=== PATIENT | male | born 1970 | race Caucasian/White ===

== ENCOUNTER 2024-12-26 21:46 | Observation (INO) ==
[2024-12-26] MEDS: SODIUM CHLORIDE 0.9% 1,000 ML IV ONE (22:08)
[2024-12-26 22:15] LABS: Hematocrit (blood only) 40.8 % (42.0-52.0); Hemoglobin 14.0 g/dl (14.0-18.0); Immature Granulocytes # (auto) 0.01 K/uL (0.01-0.20); Immature Granulocytes % (auto) 0.1 %; Mean Corpuscular Hemoglobin 30.8 pg (25.0-34.0); Mean Corpuscular Volume 89.7 fL (80.0-100.0); Platelet Count 236 K/uL (130-400); RDW Standard Deviation 45.3 fL (36.4-46.3); Red Blood Count 4.55 M/uL (4.70-6.10); White Blood Count 8.44 K/ul (4.8-10.8)
[2024-12-26 22:38] LABS: Alanine Aminotransferase 13.0 U/L (7-52); Albumin Globulin Ratio 1.2 (0.9-2); Alkaline Phosphatase 62.0 U/L (34-104); Anion Gap 7.0 (3-11); Bilirubin,Total 0.5 mg/dl (0.2-1.0); Blood Urea Nitrogen 15.0 mg/dl (6-23); Calcium 8.5 mg/dl (8.6-10.3); Carbon Dioxide 26.0 mmol/L (21-32); Chloride 104.0 mmol/L (98-107); Creatinine Clr Calc Pharmacy 114.0 ml/min; Globulin 3.2 gm/dl (2.5-4.0); Glucose 175.0 mg/dl (70-99(Fasting)); Lipase 35.0 U/L (11-82); Magnesium 2.0 mg/dl (1.7-2.4); Potassium 3.9 mmol/L (3.5-5.1); Sodium 137.0 mmol/L (136-145); Total Protein 6.9 gm/dl (6.0-8.3)
[2024-12-26 22:50] LABS: INR 0.9 (0.9-1.1); Prothrombin Time 10.3 Seconds (9.0-12.0)
[2024-12-26 22:53] LABS: Thyroid Stimulating Hormone 2.384 uIu/ml (0.300-4.500)
--- NOTE | 2024-12-26 22:59 | Emergency Department Note ---
Impression & Plan Syncope, Bradycardia with 31-40 beats per minute, Hypotensive episode ED Provider Note NAME: IGNACIA HEDRICK Jr AGE: 54 SEX: M : 1970 ARRIVES VIA: Ambulance INFORMANT: Patient ED PROVIDER(S): Jose Dudley MD CHIEF COMPLAINT: Syncope, hypotension PLAN: Disposition: Admit MEDICAL DECISION MAKING: The patient is a pleasant 54-year-old gentleman with a past medical history of hypothyroidism, hypertension, alcohol use who presents to the emergency department via EMS for evaluation of near syncope where the patient had been at a bar where he was about to get dinner and have a beer where he had only had a couple of sips before he began to feel lightheaded and was noted to be pale and diaphoretic. EMS was called and found the patient to be hypotensive with systolic blood pressure in the 70s and heart rate as low as 39. I did review the case with EMS on medical command and reviewed 12 leads and there was no evidence of high-grade AV block and rhythm appeared to be sinus bradycardia. The patient was administered atropine by EMS but had no effect. He was subsequently given IV fluid hydration per my instruction and blood pressure subsequently did improve as did his rate. Patient reports feeling well throughout the day prior to the event. He reports he was doing renovation work on his home which included sawing wood boards. He did not feel he was sweating excessively or becoming dehydrated. On arrival emergency department patient no acute distress, afebrile with heart rate in the 80s, blood pressure 110/70s and vital signs otherwise stable. He appears clinically dry. He exhibits no focal neurologic deficits. EKG without overt acute ischemia. CXR with question of peribronchial thickening per my personal preliminary review/interpretation However lungs better characterized on CT imaging subsequently. WBC, hemoglobin and platelets within normal limits. Chemistry without metabolic acidosis. Electrolytes and LFTs unremarkable. Initial high styptic troponin 3.4 with repeat 2.9, both within normal limits. Lipase is normal. TSH within normal limits. Medical alcohol was 12.8. CTA of the chest was negative for PE, acute aortic pathology or acute cardiopulmonary process otherwise. CT of the head negative for acute abnormalities. Patient did agree with plan for admission for further evaluation. Case was discussed [place], [facility] [place], who will evaluate the patient for admission. Further management per admitting team. Triage Nursing notes reviewed and agree them. Prior/external medical records reviewed Vital Signs: reviewed Differential diagnosis: Vasovagal event, dehydration, infection, hypoglycemia, electrolyte abnormalities, cardiac sources, intracerebral event, pulmonary embolism, seizure, toxicologic, neurologic, as well as other pathologies. ER treatment provided: See below. Diagnostics interpreted by me: ECG: Normal sinus rhythm, 79 bpm, no ectopy, no overt ST elevation or depression, QTc 454, QRS 70 Cardiac Monitoring: An order for continuous cardiac monitoring was placed and demonstrated Normal sinus rhythm, 79 bpm, no ectopy. Laboratory studies: See below Imaging studies: See below Consultation(s): Case was discussed with Dr. Valle, [facility] [place], who will evaluate the patient for admission. HPI: Per MDM. ROS: See above HPI for pertinent positives & negatives. A total of 10 systems reviewed and were otherwise negative. VITALS:See Below PHYSICAL EXAMINATION: GENERAL: Awake, alert, fatigued-appearing, in no distress HENT: Normocephalic, atraumatic. Oropharynx with dry mucous membranes and otherwise unremarkable. EYES: Normal conjunctiva. Sclera non-icteric. EOMI. No nystamgus. PEARRL. NECK: Supple. No nuchal rigidity. FROM. No JVD. RESPIRATORY: Clear to auscultation. CARDIAC: Regular rate, normal rhythm. Extremities warm and well perfused. Pulses equal. ABDOMEN: Soft, non-distended. No tenderness to palpation. No rebound or guarding. No masses. MUSCULOSKELETAL: Chest examination reveals no tenderness. The back is symmetrical on inspection without obvious abnormality. There is no CVA tenderness to palpation. No joint edema. LOWER EXTREMITIES: Calves are equal size bilaterally and non-tender. No edema. No discoloration. NEURO: Cranial nerves II-XII grossly intact. 5/5 strength and SILT x 4 extremities. Intact [id number]. SKIN: No rash or jaundice noted. Jose Dudley MD Past Med/Surg History Problem List (Updated 12/27/24 @ 06:20 by Jose Dudley MD) Hypotensive episode (Acute) Hypertension Bradycardia with 31-40 beats per minute (Acute) Syncope (Acute) History of pancreatitis Elevated lipase Abrasion of left leg (Acute) Encounter for vasectomy Social History Smoking Status: Never smoker Hx Alcohol Use: Yes Alcohol type: beer Hx Substance Use: Yes Last Used Substance: Days (ago) Preferred Language: Bulgarian Communication Ability: Effective Manager Plant Required: No Beliefs That Will Affect Care: None Current Living Situation: Alone Feels Safe at Home: Yes Assistive Devices: None Allergies Allergies Allergy/AdvReac Type Severity Reaction Status Date / Time bee venom protein (honey bee) Allergy Severe Anaphylaxis Verified 12/26/24 22:05 Home Meds Home Medications Medication Instructions Recorded Confirmed clonazepam 0.5 mg tablet 0.5 mg PO BID PRN Anxiety 10/17/22 12/26/24 duloxetine 30 mg capsule,delayed 30 mg PO DAILY 11/22/22 12/26/24 release duloxetine 60 mg capsule,delayed 60 mg PO HS 11/22/22 12/26/24 release levothyroxine 75 mcg tablet 75 mcg PO DAILYBB 11/22/22 12/26/24 lisinopril 30 mg tablet 30 mg PO HS 11/22/22 12/26/24 metoprolol succinate 25 mg 25 mg PO HS 11/22/22 12/26/24 tablet,extended release 24 hr Results & Data (ED) Vital Signs Vital Signs - 24 hr 12/26/24 21:54 12/26/24 22:01 12/26/24 22:05 Temperature 36.6 C Temperature Source Oral Pulse Rate 81 80 Pulse Rate [Apical] Pulse Rate from SpO2 Sensor Pulse Rhythm [Apical] Respiratory Rate 18 Respiratory Effort / Characteristics Non-Labored Spontaneous Respiratory Depth Normal Respiratory Pattern Regular Blood Pressure 115/75 Blood Pressure [Right Arm] Blood Pressure Mean 88 Blood Pressure Mean [Right Arm] Pulse Oximetry 94 95 Oxygen Delivery Method Room Air Room Air Sepsis Recent Fever Within 48 Hours No Sepsis New/Unexplained Change in Mental Status N/A Sepsis Action Taken by Nursing No Action Required 12/26/24 23:08 12/26/24 23:15 12/27/24 00:00 Temperature Temperature Source Pulse Rate 74 74 71 Pulse Rate [Apical] Pulse Rate from SpO2 Sensor 75 73 Pulse Rhythm [Apical] Respiratory Rate 18 20 16 Respiratory Effort / Characteristics Respiratory Depth Respiratory Pattern Blood Pressure 104/62 105/69 122/77 Blood Pressure [Right Arm] Blood Pressure Mean 76 81 91 Blood Pressure Mean [Right Arm] Pulse Oximetry 96 97 93 Oxygen Delivery Method Room Air Room Air Room Air Sepsis Recent Fever Within 48 Hours Sepsis New/Unexplained Change in Mental Status Sepsis Action Taken by Nursing 12/27/24 00:15 12/27/24 00:30 12/27/24 01:00 Temperature Temperature Source Pulse Rate 71 76 84 Pulse Rate [Apical] Pulse Rate from SpO2 Sensor 70 75 84 Pulse Rhythm [Apical] Respiratory Rate 21 20 17 Respiratory Effort / Characteristics Respiratory Depth Respiratory Pattern Blood Pressure 142/90 H 106/72 110/70 Blood Pressure [Right Arm] Blood Pressure Mean 111 83 83 Blood Pressure Mean [Right Arm] Pulse Oximetry 94 96 95 Oxygen Delivery Method Room Air Room Air Room Air Sepsis Recent Fever Within 48 Hours Sepsis New/Unexplained Change in Mental Status Sepsis Action Taken by Nursing 12/27/24 01:30 12/27/24 02:00 12/27/24 02:30 Temperature Temperature Source Pulse Rate 78 72 76 Pulse Rate [Apical] Pulse Rate from SpO2 Sensor 78 71 77 Pulse Rhythm [Apical] Respiratory Rate 20 19 20 Respiratory Effort / Characteristics Respiratory Depth Respiratory Pattern Blood Pressure 99/76 L 85/59 L 98/60 L Blood Pressure [Right Arm] Blood Pressure Mean 83 64 69 Blood Pressure Mean [Right Arm] Pulse Oximetry 95 95 95 Oxygen Delivery Method Room Air Room Air Room Air Sepsis Recent Fever Within 48 Hours Sepsis New/Unexplained Change in Mental Status Sepsis Action Taken by Nursing 12/27/24 02:46 12/27/24 03:00 Temperature Temperature Source Pulse Rate 78 Pulse Rate [Apical] 74 Pulse Rate from SpO2 Sensor Pulse Rhythm [Apical] Regular Respiratory Rate 20 Respiratory Effort / Characteristics Non-Labored Spontaneous Respiratory Depth Normal Respiratory Pattern Regular Blood Pressure Blood Pressure [Right Arm] 111/60 Blood Pressure Mean Blood Pressure Mean [Right Arm] 77 Pulse Oximetry 98 Oxygen Delivery Method Room Air Sepsis Recent Fever Within 48 Hours Sepsis New/Unexplained Change in Mental Status Sepsis Action Taken by Nursing Laboratory Data Attestation: I reviewed the patient's lab results. 12/26/24 22:00 12/26/24 22:00 Lab Results 12/26/24 12/26/24 12/27/24 Range/Units 22:00 22:09 00:31 WBC 8.44 (4.8-10.8) K/ul RBC 4.55 L (4.70-6.10) M/uL Hgb 14.0 (14.0-18.0) g/dl Hct 40.8 L (42.0-52.0) % MCV 89.7 (80.0-100.0) fL MCH 30.8 (25.0-34.0) pg MCHC 34.3 (32.0-36.0) g/dL RDW Std Deviation 45.3 (36.4-46.3) fL RDW Coeff of Jim 13.8 (11.5-14.5) % Plt Count 236 (130-400) K/uL MPV 9.4 (9.4-12.4) fL Immature Gran % (Auto) 0.1 % Neut % (Auto) 54.0 % Lymph % (Auto) 34.4 % Citrus % (Auto) 7.3 % Eos % (Auto) 3.4 % Baso % (Auto) 0.8 % Neut # (Auto) 4.55 (1.40-6.50) K/uL Lymph # (Auto) 2.90 (1.20-3.40) K/uL Citrus # (Auto) 0.62 H (0.11-0.59) K/uL Eos # (Auto) 0.29 (0.00-0.50) K/uL Baso # (Auto) 0.07 (0.00-0.20) K/uL Immature Gran # (Auto) 0.01 (0.01-0.20) K/uL PT 10.3 (9.0-12.0) Seconds INR 0.9 (0.9-1.1) Sodium 137 (136-145) mmol/L Potassium 3.9 (3.5-5.1) mmol/L Chloride 104 (98-107) mmol/L Carbon Dioxide 26 (21-32) mmol/L Anion Gap 7 (3-11) BUN 15 (6-23) mg/dl Creatinine 1.04 (0.6-1.4) mg/dl Est Cr Clr Drug Dosing 114.0 ml/min eGFR 86.39 BUN/Creatinine Ratio 14.4 (10-20) Glucose 175 H (70-99(Fasting)) mg/dl POC Glucose 128 H (70-99) mg/dl Calcium 8.5 L (8.6-10.3) mg/dl Phosphorus 3.1 (2.5-4.9) mg/dl Magnesium 2.0 (1.7-2.4) mg/dl Total Bilirubin 0.5 (0.2-1.0) mg/dl AST 13 (13-39) U/L ALT 13 (7-52) U/L Alkaline Phosphatase 62 (34-104) U/L Troponin I High Sens 3.4 2.9 (0-20) pg/ml Total Protein 6.9 (6.0-8.3) gm/dl Albumin 3.7 (3.4-5.0) gm/dl Globulin 3.2 (2.5-4.0) gm/dl Albumin/Globulin Ratio 1.2 (0.9-2) Lipase 35 (11-82) U/L TSH 2.384 (0.300-4.500) uIu/ml Ethyl Alcohol mg/dL 12.8 H (<10.0) mg/dl Administered Medications Potassium Chloride/Sodium Chloride (Normal Saline W/20 Meq Kcl) 20 meq in 1,000 mls @ 100 mls/hr IV .Q10H ZOLTAN Stop: 12/27/24 12:59 Last Admin: 12/27/24 03:31 Dose: 100 mls/hr Documented By: JIMMIE Levothyroxine Sodium (Levothyroxine Sodium 75 Mcg Tablet) 75 mcg PO DAILYBB ZOLTAN Stop: 01/26/25 06:29 Last Admin: 12/27/24 06:10 Dose: 75 mcg Documented By: CHRISTINA Discontinued Medications Sodium Chloride (Nss) 1,000 mls @ 999 mls/hr IV .Q1H1M ONE Stop: 12/26/24 23:04 Last Infusion: 12/26/24 23:09 Dose: Infused Documented By: Admin: 12/26/24 22:08 Dose: 999 mls/hr Documented By: NATHAN Acetaminophen (Ofirmev) 1,000 mg in 100 mls @ 400 mls/hr IV NOW STA Stop: 12/26/24 23:11 Last Infusion: 12/27/24 00:04 Dose: Infused Documented By: Admin: 12/26/24 23:49 Dose: 400 mls/hr Documented By: TRICIA Ioversol (Optiray 320 125ml) 125 ml IV ONCE ONE Stop: 12/26/24 23:41 Last Admin: 12/26/24 23:40 Dose: 118 ml Documented By: CATALINA Imaging Data Radiologist's Impression: Chest X-Ray 12/26/24 22:03 Exam(s): XR CXR 1 VIEW EXAM: XR Chest, 1 View CLINICAL HISTORY: Reason for exam: near syncope. TECHNIQUE: Frontal view of the chest. COMPARISON: Prior chest x-ray from January 28, 2024. FINDINGS: Lungs: Mild to moderate peribronchial thickening of the central bronchi. No consolidation. Pleural space: Unremarkable. No pneumothorax. Heart: Unremarkable. No cardiomegaly. Mediastinum: Unremarkable. Normal mediastinal contour. Bones/joints: Unremarkable. No acute fracture. IMPRESSION: Bronchitis, which may be of infectious or inflammatory etiologies. No consolidation or pleural effusion. Electronically signed by: Shari Altamirano MD 12/26/24 23:56 PM Chest CTA 12/26/24 22:56 Exam(s): CTA CHEST W/WO Contrast IV Amt: 118 ML OPTIRAY 320 EXAM: CT Angiography Chest With Intravenous Contrast CLINICAL HISTORY: Reason for exam: cp, syncope. TECHNIQUE: Axial computed tomographic angiography images of the chest with intravenous contrast. CTDI is 28.14 mGy and DLP is 993.24 mGy-cm. Automated exposure control was utilized for the study. A dose lowering technique was utilized adhering to the principles of ALARA. MIP reconstructed images were created and reviewed. CONTRAST: Patient received 118 ML OPTIRAY 320 of IV contrast COMPARISON: No relevant prior studies available. FINDINGS: Pulmonary arteries: Suboptimal pulmonary artery opacification, limiting evaluation. No evidence of acute pulmonary embolism as visualized. Aorta: No aortic intramural hematoma, aneurysm, or dissection. Lungs: No consolidation or mass. Pleural space: No significant pleural effusion. No pneumothorax. Heart: Coronary artery atherosclerosis. No cardiomegaly or pericardial effusion. Bones/joints: No acute fracture. No dislocation. Soft tissues: Unremarkable. Lymph nodes: No enlarged lymph nodes. IMPRESSION: 1. No aortic intramural hematoma, aneurysm, or dissection. 2. Suboptimal pulmonary artery opacification, limiting evaluation. No evidence of acute pulmonary embolism as visualized. Electronically signed by: Elder Linton M.D. 12/27/24 01:[address] 12/26/24 22:56 Exam(s): CT HEAD Without Contrast EXAM: CT Head Without Intravenous Contrast CLINICAL HISTORY: Reason for exam: richardson, syncope. TECHNIQUE: Axial computed tomography images of the head/brain without intravenous contrast. CTDI is 37.01 mGy and DLP is 624.41 mGy-cm. Automated exposure control was utilized for the study. A dose lowering technique was utilized adhering to the principles of ALARA. COMPARISON: No relevant prior studies available. FINDINGS: Brain: Unremarkable. No hemorrhage. No significant white matter disease. No edema. Ventricles: Unremarkable. No ventriculomegaly. Bones/joints: Unremarkable. No acute fracture. Soft tissues: Unremarkable. Sinuses: Chronic right ethmoid sinusitis.. No acute sinusitis. Mastoid air cells: Unremarkable as visualized. No mastoid effusion. IMPRESSION: No evidence of acute intracranial pathology. Electronically signed by: Shari Altamirano MD 12/27/24 02:13 AM Discharge Plan Visit Data Chief Complaint: Syncope Stated Complaint: NEAR SYNCOPE ED Provider: Jose Dudley Discharge Problem: Syncope, Bradycardia with 31-40 beats per minute, Hypotensive episode Patient Disposition: Admitted As Inpatient Condition: Fair Discharge Instructions Interventions: ED Discharge Assessment Last Done: 12/27/24 04:56 Discharge Problem: Syncope Qualifiers: Syncope type: unspecified Qualified Code(s): R55 - Syncope and collapse
[2024-12-26] MEDS: OPTIRAY 320 125ml IV ONE (23:40)
[2024-12-26] MEDS: ACETAMINOPHEN 1,000 MG/100 ML VIAL IV STA (23:49)
--- NOTE | 2024-12-26 23:57 | XRay Report ---
Exam(s): XR CXR 1 VIEW EXAM: XR Chest, 1 View CLINICAL HISTORY: Reason for exam: near syncope. TECHNIQUE: Frontal view of the chest. COMPARISON: Prior chest x-ray from January 28, 2024. FINDINGS: Lungs: Mild to moderate peribronchial thickening of the central bronchi. No consolidation. Pleural space: Unremarkable. No pneumothorax. Heart: Unremarkable. No cardiomegaly. Mediastinum: Unremarkable. Normal mediastinal contour. Bones/joints: Unremarkable. No acute fracture. IMPRESSION: Bronchitis, which may be of infectious or inflammatory etiologies. No consolidation or pleural effusion. Electronically signed by: Shari Altamirano MD 12/26/24 23:56 PM
--- NOTE | 2024-12-27 01:34 | CT Scan Report ---
Exam(s): CTA CHEST W/WO Contrast IV Amt: 118 ML OPTIRAY 320 EXAM: CT Angiography Chest With Intravenous Contrast CLINICAL HISTORY: Reason for exam: cp, syncope. TECHNIQUE: Axial computed tomographic angiography images of the chest with intravenous contrast. CTDI is 28.14 mGy and DLP is 993.24 mGy-cm. Automated exposure control was utilized for the study. A dose lowering technique was utilized adhering to the principles of ALARA. MIP reconstructed images were created and reviewed. CONTRAST: Patient received 118 ML OPTIRAY 320 of IV contrast COMPARISON: No relevant prior studies available. FINDINGS: Pulmonary arteries: Suboptimal pulmonary artery opacification, limiting evaluation. No evidence of acute pulmonary embolism as visualized. Aorta: No aortic intramural hematoma, aneurysm, or dissection. Lungs: No consolidation or mass. Pleural space: No significant pleural effusion. No pneumothorax. Heart: Coronary artery atherosclerosis. No cardiomegaly or pericardial effusion. Bones/joints: No acute fracture. No dislocation. Soft tissues: Unremarkable. Lymph nodes: No enlarged lymph nodes. IMPRESSION: 1. No aortic intramural hematoma, aneurysm, or dissection. 2. Suboptimal pulmonary artery opacification, limiting evaluation. No evidence of acute pulmonary embolism as visualized. Electronically signed by: Elder Linton M.D. 12/27/24 01:33 AM
--- NOTE | 2024-12-27 02:15 | CT Scan Report ---
Exam(s): CT HEAD Without Contrast EXAM: CT Head Without Intravenous Contrast CLINICAL HISTORY: Reason for exam: richardson, syncope. TECHNIQUE: Axial computed tomography images of the head/brain without intravenous contrast. CTDI is 37.01 mGy and DLP is 624.41 mGy-cm. Automated exposure control was utilized for the study. A dose lowering technique was utilized adhering to the principles of ALARA. COMPARISON: No relevant prior studies available. FINDINGS: Brain: Unremarkable. No hemorrhage. No significant white matter disease. No edema. Ventricles: Unremarkable. No ventriculomegaly. Bones/joints: Unremarkable. No acute fracture. Soft tissues: Unremarkable. Sinuses: Chronic right ethmoid sinusitis.. No acute sinusitis. Mastoid air cells: Unremarkable as visualized. No mastoid effusion. IMPRESSION: No evidence of acute intracranial pathology. Electronically signed by: Shari Altamirano MD 12/27/24 02:13 AM
--- NOTE | 2024-12-27 03:11 | History & Physical Report ---
Date of Service December 27, 2024 Assessment & Plan (1) Syncope: (2) Bradycardia with 31-40 beats per minute: (3) Hypotensive episode: (4) Hypertension: Plan The patient is a 54-year-old male with past medical history including pancreatitis, anxiety, hypothyroidism, hypertension, sarcoidosis, and pancreatic cyst. The patient presents to the emergency department following a syncopal episode. 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 He reported eating a cheeseburger and onion rings this evening, and shortly thereafter became dizzy and weak, he was going to tell his significant other, and he reports that she noted him to be progressively more weak, and slowly lowered himself to the floor. She called EMS, who found his pressure to be 70s over 40s, and his heart rate dropped down to 39, and he was given atropine 1 mg IV and NSS 600 mL en route to the hospital. He reports no previous issues with low blood pressure and low heart rate. In emergency department he did medicate normally, and feels like himself. The patient reports that he takes most of the medications in the evening. However, he did not take his metoprolol succinate, lisinopril, or duloxetine this evening. Despite not having taken these medications, his blood pressure during my assessment in the emergency department was 98/60 with a pulse in the low 70s. Patient reports he was drinking a single beer when the symptoms began to occur. He has actually decreased his overall alcohol intake over the past months. He was referred to the [facility] service for further evaluation and treatment. Syncope/bradycardia/hypotensive episode- When patient was assessed by EMS, his pressures were in the low 70s over 40s, and heart rate dropped to 39 He was given atropine 1 mg IV and normal saline 600 mL bolus admitted to the hospital, with a report provide his blood pressure up into the 90s over 60s and heart rate into the 60-70 range. While in the emergency department, the patient maintained his blood pressure and heart rate in the same range. Evaluation in the emergency department included a normal CT scan of head, normal CTA chest. Troponin initially was 3.4 with follow-up 2.9 The patient will be admitted to telemetry for serial cardiac enzymes, serial EKG's, cardiac rhythm monitoring and a 2-D echocardiogram with Dopplers. Patient will continue to keep pacer pads on Of note, patient's pressure remains low in spite of not taking metoprolol succinate 25 mg at bedtime, and lisinopril 30 mg at bedtime. Patient reports that he was placing a laminate floor for most of the day, primarily drinking soda, and that symptoms occurred after he had a cheeseburger and onion rings. There may be an element of postprandial hypoglycemia Will hold metoprolol succinate, lisinopril, duloxetine, and clonazepam NSS + KCl 20 mEq at 100 mL/h Consult cardiology Hypothyroidism- Continue levothyroxine Depression with anxiety- Since duloxetine may have associated orthostatic hypotension, it will be held Hold clonazepam Sarcoidosis- Patient has not had any symptoms for a few years Pancreatitis/pancreatic cyst- Was thought to be secondary to use of Wegovy/semaglutide Obesity/weight management- Patient reports his weight had been 300 pounds, and since use of Wegovy had lost a significant amount of weight, but this was stopped several months ago. He reports that his weight has been gradually going back up again, and presently is at 250. The 50 pound weight difference would likely have necessitated a decrease in blood pressure medications, this is unlikely to have caused his symptoms except for short interval of time, as he had no issues with the previous day. History of Present Illness Chief Complaint: The patient presents to the emergency department following a syncopal episode. 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 He reported eating a cheeseburger and onion rings this evening, and shortly thereafter became dizzy and weak, he was going to tell his significant other, and he reports that she noted him to be progressively more weak, and slowly lowered himself to the floor. She called EMS, who found his pressure to be 70s over 40s, and his heart rate dropped down to 39, and he was given atropine 1 mg IV and NSS 600 mL en route to the hospit al. He reports no previous issues with low blood pressure and low heart rate. In emergency department he did medicate normally, and feels like himself. Primary Care Provider: Lexy Malin CRNP The patient is a 54-year-old male with past medical history including pancreatitis, anxiety, hypothyroidism, hypertension, sarcoidosis, and pancreatic cyst. The patient presents to the emergency department following a syncopal episode. 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 He reported eating a cheeseburger and onion rings this evening, and shortly thereafter became dizzy and weak, he was going to tell his significant other, and he reports that she noted him to be progressively more weak, and slowly lowered himself to the floor. She called EMS, who found his pressure to be 70s over 40s, and his heart rate dropped down to 39, and he was given atropine 1 mg IV and NSS 600 mL en route to the hospital. He reports no previous issues with low blood pressure and low heart rate. In emergency department he did medicate normally, and feels like himself. The patient reports that he takes most of the medications in the evening. However, he did not take his metoprolol succinate, lisinopril, or duloxetine this evening. Despite not having taken these medications, his blood pressure during my assessment in the emergency department was 98/60 with a pulse in the low 70s. Patient reports he was drinking a single beer when the symptoms began to occur. He has actually decreased his overall alcohol intake over the past months. He was referred to the [facility] service for further evaluation and treatment. Allergies Allergy/AdvReac Type Severity Reaction Status Date / Time bee venom protein (honey bee) Allergy Severe Anaphylaxis Verified 12/26/24 22:05 Home Medications Medication Instructions Recorded Confirmed Type clonazepam 0.5 mg tablet 0.5 mg PO BID PRN Anxiety 10/17/22 12/26/24 History duloxetine 30 mg capsule,delayed 30 mg PO DAILY 11/22/22 12/26/24 History release duloxetine 60 mg capsule,delayed 60 mg PO HS 11/22/22 12/26/24 History release levothyroxine 75 mcg tablet 75 mcg PO DAILYBB 11/22/22 12/26/24 History lisinopril 30 mg tablet 30 mg PO HS 11/22/22 12/26/24 History metoprolol succinate 25 mg 25 mg PO HS 11/22/22 12/26/24 History tablet,extended release 24 hr Past Med/Surg History Problem List (Updated 12/27/24 @ 05:12 by Rodriguez Valle MD) Hypotensive episode Hypertension Bradycardia with 31-40 beats per minute Hypotension (Acute) Syncope (Acute) History of pancreatitis Elevated lipase Abrasion of left leg (Acute) Encounter for vasectomy Social History Smoking Status: Never smoker Preferred Language: Malay Feels Safe at Home: Yes Review of Systems Review of Systems: The patient denies chest pain, palpitations, shortness of breath, dyspnea on exertion, cough, lower extremity swelling, sore throat, fevers, chills, sweats, nausea, vomiting, diarrhea , constipation, abdominal pain, pelvic pain, blood in urine or stool, dysuria, urinary frequency or urgency, rash, abnormal bruising or bleeding, focal weakness, numbness or tingling in arms or legs, generalized arthralgias or myalgias, back or neck pain, or night sweats. The review of systems is otherwise negative other than for that already noted above, and at least 10 systems have been reviewed. Physical Exam Physical Exam: The patient is awake, alert and oriented 3, well developed and well nourished, normocephalic and atraumatic, lying in bed and in no acute distress. HEENT--PERRL, EOMI, mucous membranes and oropharynx mildly dry. Neck--supple. No JVD. No bruits. Thyroid normal, trachea midline, no adenopathy. Heart--normal S1 and S2. No murmurs, rubs or gallops. Lungs--clear bilaterally, no respiratory distress, no accessory muscle use. Abdomen--normal bowel sounds and soft. Nontender. Nondistended, no hernias or masses, no organomegaly. Extremities--no cyanosis or clubbing. No edema. There are good distal pulses b/l. Dermatologic--normal skin turgor, normal color, no abnormal lymph nodes, no rash. Neurologic--cranial nerves II through XII grossly intact. Rheumatologic--normal range of motion. Psychiatric--normal affect. Results & Data Results & Data Vital Signs (Past 12 Hours) Vital Signs Temp Pulse Resp BP Pulse Ox O2 Del Method 12/27/24 02:46 78 12/27/24 02:30 76 20 98/60 L 95 Room Air 12/27/24 02:00 72 19 85/59 L 95 Room Air 12/27/24 01:30 78 20 99/76 L 95 Room Air 12/27/24 01:00 84 17 110/70 95 Room Air 12/27/24 00:30 76 20 106/72 96 Room Air 12/27/24 00:15 71 21 142/90 H 94 Room Air 12/27/24 00:00 71 16 122/77 93 Room Air 12/26/24 23:15 74 20 105/69 97 Room Air 12/26/24 23:08 74 18 104/62 96 Room Air 12/26/24 22:05 95 Room Air 12/26/24 22:01 80 12/26/24 21:54 36.6 C 81 18 115/75 94 Room Air Laboratory Results Laboratory Results WBC 8.44 K/ul (4.8-10.8) 12/26/24 22:00 RBC 4.55 M/uL (4.70-6.10) L 12/26/24 22:00 Hgb 14.0 g/dl (14.0-18.0) 12/26/24 22:00 Hct 40.8 % (42.0-52.0) L 12/26/24 22:00 MCV 89.7 fL (80.0-100.0) 12/26/24 22:00 MCH 30.8 pg (25.0-34.0) 12/26/24 22:00 MCHC 34.3 g/dL (32.0-36.0) 12/26/24 22:00 RDW Std Deviation 45.3 fL (36.4-46.3) 12/26/24 22:00 RDW Coeff of Jim 13.8 % (11.5-14.5) 12/26/24 22:00 Plt Count 236 K/uL (130-400) 12/26/24 22:00 MPV 9.4 fL (9.4-12.4) 12/26/24 22:00 Immature Gran % (Auto) 0.1 % 12/26/24 22:00 Neut % (Auto) 54.0 % 12/26/24 22:00 Lymph % (Auto) 34.4 % 12/26/24 22:00 Holt % (Auto) 7.3 % 12/26/24 22:00 Eos % (Auto) 3.4 % 12/26/24 22:00 Baso % (Auto) 0.8 % 12/26/24 22:00 Neut # (Auto) 4.55 K/uL (1.40-6.50) 12/26/24 22:00 Lymph # (Auto) 2.90 K/uL (1.20-3.40) 12/26/24 22:00 Holt # (Auto) 0.62 K/uL (0.11-0.59) H 12/26/24 22:00 Eos # (Auto) 0.29 K/uL (0.00-0.50) 12/26/24 22:00 Baso # (Auto) 0.07 K/uL (0.00-0.20) 12/26/24 22:00 Immature Gran # (Auto) 0.01 K/uL (0.01-0.20) 12/26/24 22:00 PT 10.3 Seconds (9.0-12.0) 12/26/24 22:00 INR 0.9 (0.9-1.1) 12/26/24 22:00 Sodium 137 mmol/L (136-145) 12/26/24 22:00 Potassium 3.9 mmol/L (3.5-5.1) 12/26/24 22:00 Chloride 104 mmol/L (98-107) 12/26/24 22:00 Carbon Dioxide 26 mmol/L (21-32) 12/26/24 22:00 Anion Gap 7 (3-11) 12/26/24 22:00 BUN 15 mg/dl (6-23) 12/26/24 22:00 Creatinine 1.04 mg/dl (0.6-1.4) 12/26/24 22:00 Est Cr Clr Drug Dosing 114.0 ml/min 12/26/24 22:00 eGFR 86.39 12/26/24 22:00 BUN/Creatinine Ratio 14.4 (10-20) 12/26/24 22:00 Glucose 175 mg/dl (70-99(Fasting)) H 12/26/24 22:00 POC Glucose 128 mg/dl (70-99) H 12/26/24 22:09 Calcium 8.5 mg/dl (8.6-10.3) L 12/26/24 22:00 Phosphorus 3.1 mg/dl (2.5-4.9) 12/26/24 22:00 Magnesium 2.0 mg/dl (1.7-2.4) 12/26/24 22:00 Total Bilirubin 0.5 mg/dl (0.2-1.0) 12/26/24 22:00 AST 13 U/L (13-39) 12/26/24 22:00 ALT 13 U/L (7-52) 12/26/24 22:00 Alkaline Phosphatase 62 U/L (34-104) 12/26/24 22:00 Troponin I High Sens 2.9 pg/ml (0-20) 12/27/24 00:31 Total Protein 6.9 gm/dl (6.0-8.3) 12/26/24 22:00 Albumin 3.7 gm/dl (3.4-5.0) 12/26/24 22:00 Globulin 3.2 gm/dl (2.5-4.0) 12/26/24 22:00 Albumin/Globulin Ratio 1.2 (0.9-2) 12/26/24 22:00 Lipase 35 U/L (11-82) 12/26/24 22:00 TSH 2.384 uIu/ml (0.300-4.500) 12/26/24 22:00 Ethyl Alcohol mg/dL 12.8 mg/dl (<10.0) H 12/26/24 22:00 Impressions Chest X-Ray 12/26/24 22:03 Exam(s): XR CXR 1 VIEW EXAM: XR Chest, 1 View CLINICAL HISTORY: Reason for exam: near syncope. TECHNIQUE: Frontal view of the chest. COMPARISON: Prior chest x-ray from January 28, 2024. FINDINGS: Lungs: Mild to moderate peribronchial thickening of the central bronchi. No consolidation. Pleural space: Unremarkable. No pneumothorax. Heart: Unremarkable. No cardiomegaly. Mediastinum: Unremarkable. Normal mediastinal contour. Bones/joints: Unremarkable. No acute fracture. IMPRESSION: Bronchitis, which may be of infectious or inflammatory etiologies. No consolidation or pleural effusion. Electronically signed by: Shari Altamirano MD 12/26/24 23:56 PM Chest CTA 12/26/24 22:56 Exam(s): CTA CHEST W/WO Contrast IV Amt: 118 ML OPTIRAY 320 EXAM: CT Angiography Chest With Intravenous Contrast CLINICAL HISTORY: Reason for exam: cp, syncope. TECHNIQUE: Axial computed tomographic angiography images of the chest with intravenous contrast. CTDI is 28.14 mGy and DLP is 993.24 mGy-cm. Automated exposure control was utilized for the study. A dose lowering technique was utilized adhering to the principles of ALARA. MIP reconstructed images were created and reviewed. CONTRAST: Patient received 118 ML OPTIRAY 320 of IV contrast COMPARISON: No relevant prior studies available. FINDINGS: Pulmonary arteries: Suboptimal pulmonary artery opacification, limiting evaluation. No evidence of acute pulmonary embolism as visualized. Aorta: No aortic intramural hematoma, aneurysm, or dissection. Lungs: No consolidation or mass. Pleural space: No significant pleural effusion. No pneumothorax. Heart: Coronary artery atherosclerosis. No cardiomegaly or pericardial effusion. Bones/joints: No acute fracture. No dislocation. Soft tissues: Unremarkable. Lymph nodes: No enlarged lymph nodes. IMPRESSION: 1. No aortic intramural hematoma, aneurysm, or dissection. 2. Suboptimal pulmonary artery opacification, limiting evaluation. No evidence of acute pulmonary embolism as visualized. Electronically signed by: Elder Linton M.D. 12/27/24 01:[address] 12/26/24 22:56 Exam(s): CT HEAD Without Contrast EXAM: CT Head Without Intravenous Contrast CLINICAL HISTORY: Reason for exam: richardson, syncope. TECHNIQUE: Axial computed tomography images of the head/brain without intravenous contrast. CTDI is 37.01 mGy and DLP is 624.41 mGy-cm. Automated exposure control was utilized for the study. A dose lowering technique was utilized adhering to the principles of ALARA. COMPARISON: No relevant prior studies available. FINDINGS: Brain: Unremarkable. No hemorrhage. No significant white matter disease. No edema. Ventricles: Unremarkable. No ventriculomegaly. Bones/joints: Unremarkable. No acute fracture. Soft tissues: Unremarkable. Sinuses: Chronic right ethmoid sinusitis.. No acute sinusitis. Mastoid air cells: Unremarkable as visualized. No mastoid effusion. IMPRESSION: No evidence of acute intracranial pathology. Electronically signed by: Shari Altamirano MD 12/27/24 02:13 AM Code Status & VTE Plan Code Status Full code VTE Prophylaxis Plan VTE Prophylaxis will be ordered: Yes PG Care Time/CCT Total # of Minutes Spent Total Time Spent with Patient: Total time spent is greater than 50% in coordination of care (as documented) at patient's floor/unit and/or counseling patient: Coding Level of Care Code 92309 INT INP/OBS CARE 375MIN Diagnoses Syncope R55 Bradycardia with 31-40 beats per minute R00.1 Hypotensive episode I95.9 Hypertension I10
[2024-12-27] MEDS: NSS + 20MEQ KCL 20 MEQ/1,000 ML BAG IV SCH (03:31)
[2024-12-27] MEDS ORDERED: ACETAMINOPHEN 325 MG TAB PO PRN (05:52)
[2024-12-27 06:09] LABS: Appearance Urine Clear (Clear); Glucose Urine UA Negative (Negative)
[2024-12-27] MEDS: LEVOTHYROXINE SODIUM 75 MCG TABLET PO SCH (06:10)
--- NOTE | 2024-12-27 08:21 | Discharge Summary ---
Discharge Summary Date of Service December 27, 2024 Principal Dx & Hospital Course #1 = Principal Diagnosis (1) Syncope: (2) Bradycardia with 31-40 beats per minute: (3) Hypotensive episode: (4) Hypertension: Plan The patient is a 54-year-old male with past medical history including pancreatitis, anxiety, hypothyroidism, hypertension, sarcoidosis, and pancreatic cyst. The patient presents to the emergency department following a syncopal episode. 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 He reported eating a cheeseburger and onion rings this evening, and shortly thereafter became dizzy and weak, he was going to tell his significant other, and he reports that she noted him to be progressively more weak, and slowly lowered himself to the floor. She called EMS, who found his pressure to be 70s over 40s, and his heart rate dropped down to 39, and he was given atropine 1 mg IV and NSS 600 mL en route to the hospital. He reports no previous issues with low blood pressure and low heart rate. In emergency department he did medicate normally, and feels like himself. The patient reports that he takes most of the medications in the evening. How ever, he did not take his metoprolol succinate, lisinopril, or duloxetine this evening. Despite not having taken these medications, his blood pressure during my assessment in the emergency department was 98/60 with a pulse in the low 70s. Patient reports he was drinking a single beer when the symptoms began to occur. He has actually decreased his overall alcohol intake over the past months. [facility] was [facility] for further evaluation and treatment. Syncope/bradycardia/hypotensive episode- Prehospital EMS BP 70s/40s, heart rate 39. ER evaluation remained hypotensive, heart rate normalized on EKG Patient has had over 50 pounds weight loss since being on GLP-1. Takes lisinopril and metoprolol, had not taken evening medications at time of low blood pressure. Had had part of 1 drink of alcohol at time of episode EKG normal sinus rhythm - Overnight tele nsr in 70s-80s, 1 episode of HR to 50s while sleeping briefly. No heart block during. Troponin normal, no chest pain Echo: Hyperdynamic, EF 70%. No regional wall motion abnormalities. Hydration encouraged. Suspect vasovagal episode, and also can likely have his BP meds at baseline d ecreased due to significant weight loss of over 50 pounds while on Wegovy. BP and heart rates have been normal. Denies history of CAD. Lisinopril/metoprolol held. Cynril held on discharge, metoprolol dose reduced. Daily blood pressure checks and follow-up as outpatient for further adjustments as needed Cardiology was consulted on admission. Suspect vasovagal/orthostatic however he is at risk of dysrhythmia given underlying sarcoid. Outpatient follow-up for a event monitor with the office has been arranged. Depression/anxiety Clonazepam held during admission Duloxetine can be associated with orthostatic hypotension, and was held on admission. Patient doing well and normal day of discharge. This was resumed; however was noted to patient if he has recurrent symptoms to discuss dose adjustment of this medication with his PCP and have outpatient follow-up as needed Hypothyroidism- Continue levothyroxine TSH wnl Sarcoidosis- Patient has not had any symptoms for a few years Pancreatitis/pancreatic cyst- Was thought to be secondary to use of Wegovy/semaglutide Obesity/weight management- Patient reports his weight had been 300 pounds, and since use of Wegovy had lost a significant amount of weight, but this was stopped several months ago. He reports that his weight has been gradually going back up again, and presently is at 250. Admission HPI Per Admitting Provider The patient is a 54-year-old male with past medical history including pancreatitis, anxiety, hypothyroidism, hypertension, sarcoidosis, and pancreatic cyst. The patient presents to the emergency department following a syncopal episode. 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 He reported eating a cheeseburger and onion rings this evening, and shortly thereafter became dizzy and weak, he was going to tell his significant other, and he reports that she noted him to be progressively more weak, and slowly lowered himself to the floor. She called EMS, who found his pressure to be 70s over 40s, and his heart rate dropped down to 39, and he was given atropine 1 mg IV and NSS 600 mL en route to the hospital. He reports no previous issues with low blood pressure and low heart rate. In emergency department he did medicate normally, and feels like himself. The patient reports that he takes most of the medications in the evening. However, he did not take his metoprolol succinate, lisinopril, or duloxetine this evening. Despite not having taken these medications, his blood pressure during my assessment in the emergency department was 98/60 with a pulse in the low 70s. Patient reports he was drinking a single beer when the symptoms began to occur. He has actually decreased his overall alcohol intake over the past months. He was referred to the [facility] for further evaluation and treatment. Discharge Exam General: A&Ox3. NAD. Cooperative. HEENT: Atraumatic, normocephalic. Patient and hearing grossly intact Pulm: CTAB A&P. -wheezes, -rales, -rhonchi. Symmetrical chest rise. No increase in work of breathing. No respiratory distress. Cardiac: RRR, -mrg. Radial pulses intact and symmetrical. Extremities: Warm, dry Discharge Plan Discharge Items Patient Disposition: Home - Self-Care Reason For Visit: SYNCOPE, BRADYCARDIA, HYPOTENSION Discharge Diagnosis: Syncope, suspect vasovagal. Dysrhythmia not definitively excluded Condition on Discharge: Fair Activity: Resume your previous activity Non-emergency contact: Primary Care Provider and Manager Planning Call non-emergency contact if: you have any medication questions, your symptoms worsen and your pain is not controlled Follow-up/Referrals: Jef Shepherd MD [Physician] - Lexy Malin CRNP [Primary Care Provider] - 01/02/25 10:00 am (Hospital follow up is scheduled for January 02, 2025 at 10:00am.) Diet: Regular Addtl Attending Provider Instructions: You are seen in the hospital for an episode of syncope/passing out. You were seen by cardiology. Your troponin levels were normal. Your blood pressure returned to normal morning of discharge. You felt well in the interim baseline day of discharge. Your blood pressure was normal with your medications held, and these could potentially contribute to episodes of syncope. Your lisinopril has temporarily been held, and your metoprolol has been continued at a dose reduction as noted below. Please check your blood pressure daily and if greater than 130 please call your PCP or glove parts inspector for recommendations. Your glove parts inspector and primary care physician should review your lisinopril/metoprolol needs at your next appointment. Your duloxetine has been resumed. This can contribute to low blood pressure when standing, if you have recurrent issues please hold this medication and discuss potential adjustments with your PCP. A outpatient rhythm monitor is being arranged for you via cardiology. Instructions to pick this up were discussed with you prior to your discharge. Due to your history of sarcoid you are at higher risk of dysrhythmias, and while your EKG and rhythm was normal during admission this was not definitively excluded as a potential cause of your symptoms. If you develop any new or worsening symptoms including fever, chills, sweats, chest pain, chest pressure, difficulty breathing, uncontrolled nausea/vomiting, rash, wheezing, passing out or nearly passing out, bleeding, black/bloody bowel movements, or other new or concerning symptoms please call your primary care physician, or call 911 for re-evaluation in the emergency department if you are very concerned. Pending Studies at Discharge: No Stand-Alone Forms: My [employer], Smoking Cessation Medications and DC Order Prescriptions: Continued clonazepam 0.5 mg tablet 0.5 mg PO BID PRN (Reason: Anxiety) levothyroxine 75 mcg tablet 75 mcg PO DAILYBB duloxetine 30 mg capsule,delayed release(DR/EC) 30 mg PO DAILY Rx Instructions: TOTAL DOSE 90 MG--TAKES WITH 60 MG CAP. duloxetine 60 mg capsule,delayed release(DR/EC) 60 mg PO HS Rx Instructions: TOTAL DOSE 90 MG--TAKES WITH 30 MG CAP. Changed metoprolol succinate 25 mg tablet extended release 24 hr 12.5 mg PO HS Qty: 0 0RF Held lisinopril 30 mg tablet 30 mg PO HS Hold Instructions: Resume on 01/15/25. Discharge Orders: Discharge Order (Routine); Ordered 12/27/24 Ordered By: Jeremy Ibrahim Admission Data Admit Date/Time: 12/27/24 03:10 Attending Provider: Jeremy Ibrahim Admit Provider: Rodriguez Valle Primary Care Provider: Lexy Malin Other Providers: Rodriguez Valle; Hannah Campbell Other Interventions: Discharge Summary Assessment (RN) Last Done: 12/27/24 10:17 Hospital Stay Data Consultations 12/27/24 02:21 ED Decision to Admit Stat 12/27/24 05:52 Consult Cardiology Routine Diagnostic Imagining Performed 12/26/24 22:56 CT angio chest dissec wo/w con Stat CT head/brain wo con Stat Discharge Instructions Given to Patient (Per Discharging Provider) You are seen in the hospital for an episode of syncope/passing out. You were seen by cardiology. Your troponin levels were normal. Your blood pressure returned to normal morning of discharge. You felt well in the interim baseline day of discharge. Your blood pressure was normal with your medications held, and these could potentially contribute to episodes of syncope. Your lisinopril has temporarily been held, and your metoprolol has been continued at a dose reduction as noted below. Please check your blood pressure daily and if greater than 130 please call your PCP or glove parts inspector for recommendations. Your glove parts inspector and primary care physician should review your lisinopril/metoprolol needs at your next appointment. Your duloxetine has been resumed. This can contribute to low blood pressure when standing, if you have recurrent issues please hold this medication and discuss potential adjustments with your PCP. A outpatient rhythm monitor is being arranged for you via cardiology. Instructions to pick this up were discussed with you prior to your discharge. Due to your history of sarcoid you are at higher risk of dysrhythmias, and while your EKG and rhythm was normal during admission this was not definitively excluded as a potential cause of your symptoms. If you develop any new or worsening symptoms including fever, chills, sweats, chest pain, chest pressure, difficulty breathing, uncontrolled nausea/vomiting, rash, wheezing, passing out or nearly passing out, bleeding, black/bloody bowel movements, or other new or concerning symptoms please call your primary care physician, or call 911 for re-evaluation in the emergency department if you are very concerned. Total Time Total Time Spent Total Time Spent (In Minutes): Time spend day of discharge 40 minutes including direct patient care, documentation, review of labs and images, and coordination of care. Coding Level of Care Code 52778 INP/OBS DISCH >30 MIN Diagnoses Syncope R55 Syncope type: unspecified Bradycardia with 31-40 beats per minute R00.1 Hypotensive episode I95.9 Hypertension I10
[2024-12-27 08:47] LABS: Cholesterol 168.0 mg/dl (0-200); HDL Cholesterol 51.0 mg/dl; Triglycerides 72.0 mg/dl (0-150)
--- NOTE | 2024-12-27 09:05 | Cardiology Consultation ---
Date of Consultation December 27, 2024 Assessment & Plan (1) Syncope: (2) Hypotensive episode: (3) Sarcoidosis: Plan Mr. Moe's syncopal episode is most consistent with dehydration/vasovagal syncope. His troponins remained normal. No ischemic changes on EKG. Echo is pending. He does however have a history of sarcoidosis. I would recommend he wear a 30 day event monitor to be placed at our clinic at discharge to ensure he is not demonstrating electrolyte abnormalities as can be an effect of cardiac sarcoid. He notes that he actually has gained back all of the weight he has lost on Wegovy so weight loss is probably not playing a role but he was encouraged to drink plenty of water especially when doing physical labor. His blood pressure medicines can be resumed. He should follow up with us in a month to review his event monitor. His case was discussed with Dr. Fernandez History of Present Illness Attending Physician: Jeremy Ibrahim MD History of Present Illness Mr. Moe presented to the emergency department after a syncopal episode yesterday. 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 Toward the end of the day he told his that he wasn't feeling well and was dizzy and then fainted. EMS found him to be hypotensive with systolic blood pressure in the 70s and heart rate as low as 39. Heart rates had recovered by the time he got to the hospital but he remained mildly hypotensive. He was administered atropine with no effect. He denies palpitations, sob, edema or chest pain. He has never had an episode of syncope before. He has been in SR on the monitor, SB overnight with lows in the 40s - 50s bpm. He feels like his usual self today. He notes that he has not needed treatment or been followed by anyone for his sarcoidosis in some years. He had previously been seen by [facility]. No evidence of cardiac sarcoid per his report. Pmhx: pancreatitis, anxiety, hypothyroidism, hypertension, sarcoidosis, and pancreatic cyst Allergies Allergy/AdvReac Type Severity Reaction Status Date / Time bee venom protein (honey bee) Allergy Severe Anaphylaxis Verified 12/26/24 22:05 Home Medications Medication Instructions Recorded Confirmed Type clonazepam 0.5 mg tablet 0.5 mg PO BID PRN Anxiety 10/17/22 12/26/24 History duloxetine 30 mg capsule,delayed 30 mg PO DAILY 11/22/22 12/26/24 History release duloxetine 60 mg capsule,delayed 60 mg PO HS 11/22/22 12/26/24 History release levothyroxine 75 mcg tablet 75 mcg PO DAILYBB 11/22/22 12/26/24 History lisinopril 30 mg tablet 30 mg PO HS 11/22/22 12/26/24 History metoprolol succinate 25 mg 12.5 mg (1/2 x 25 mg) PO HS #0 tabs 12/27/24 12/26/24 Rx tablet,extended release 24 hr Patient History Social History Smoking Status: Never smoker Hx Alcohol Use: Yes Alcohol type: beer Hx Substance Use: Yes Last Used Substance: Days (ago) Preferred Language: [place] Communication Ability: Effective Production Maintenance Mechanic Required: No Beliefs That Will Affect Care: None Current Living Situation: Alone Feels Safe at Home: Yes Assistive Devices: None Review of Systems Review of Systems: All systems reviewed & are unremarkable except as noted in HPI & below Physical Exam Constitutional: WD/WN, vitals as above Respiratory: normal respiratory effort, lungs clear to auscultation Cardiovascular: RRR, no murmur, no edema Skin: no rashes, warm and dry Neurologic: moves all extremities and awake Psychiatric: A+Ox3, euthymic affect Results & Data Vital Signs (Past 12 Hours) Vital Signs Temp Pulse Pulse Resp BP BP Pulse Ox 12/27/24 07:47 36.5 C 65 20 121/77 97 12/27/24 06:14 57 L 12/27/24 05:56 36.6 C 58 L 16 132/81 98 12/27/24 05:00 73 16 117/59 L 96 12/27/24 04:56 81 18 100/52 L 94 12/27/24 04:00 78 17 98/53 L 98 12/27/24 03:30 70 16 108/59 L 99 12/27/24 03:00 74 20 111/60 98 12/27/24 02:46 78 12/27/24 02:30 76 20 98/60 L 95 12/27/24 02:00 72 19 85/59 L 95 12/27/24 01:30 78 20 99/76 L 95 12/27/24 01:00 84 17 110/70 95 12/27/24 00:30 76 20 106/72 96 12/27/24 00:15 71 21 142/90 H 94 12/27/24 00:00 71 16 122/77 93 12/26/24 23:15 74 20 105/69 97 12/26/24 23:08 74 18 104/62 96 12/26/24 22:05 95 12/26/24 22:01 80 12/26/24 21:54 36.6 C 81 18 115/75 94 O2 Del Method 12/27/24 07:47 Room Air 12/27/24 06:14 12/27/24 05:56 Room Air 12/27/24 05:00 Room Air 12/27/24 04:56 Room Air 12/27/24 04:00 Room Air 12/27/24 03:30 Room Air 12/27/24 03:00 Room Air 12/27/24 02:46 12/27/24 02:30 Room Air 12/27/24 02:00 Room Air 12/27/24 01:30 Room Air 12/27/24 01:00 Room Air 12/27/24 00:30 Room Air 12/27/24 00:15 Room Air 12/27/24 00:00 Room Air 12/26/24 23:15 Room Air 12/26/24 23:08 Room Air 12/26/24 22:05 Room Air 12/26/24 22:01 12/26/24 21:54 Room Air (1) Syncope Syncope type: unspecified Qualified Code(s): R55 - Syncope and collapse
--- NOTE | 2024-12-27 17:41 | XCELERA ---
[id number] [id number]
--- NOTE | 2024-12-27 22:02 | Electrocardiogram Report ---
Test Reason : Blood Pressure : */* mmHG Vent. Rate : 79 BPM Atrial Rate : 79 BPM P-R Int : 152 ms QRS Dur : 76 ms QT Int : 396 ms P-R-T Axes : 45 40 16 degrees QTcB Int : 454 ms Normal sinus rhythm Normal ECG When compared with ECG of 09-Nov-2024 18:34, No significant change was found Confirmed by Domingo Childs ([id number]) on 12/27/2024 10:02:15 PM Referred By: REFERRED SELF Confirmed By: Domingo Childs
== END 2024-12-27 11:12 | disposition home or self-care (01) ==
LOC: ED 21:46 → 2S 21:46 → SUATTDRO 12-27 03:10 → 2S 12-27 04:56